=== PATIENT | female | born 1980 | race Caucasian/White ===

== ENCOUNTER 2017-10-22 08:26 | Emergency (ER) | payer MEDICAID ==
[~2017-10-22] VITALS: Ht 165.1 cm; Wt 99.5 kg
[2017-10-22 09:16] VITALS: BP 128/73
[2017-10-22] MEDS ORDERED: ACETAMINOPHEN EXTRA STRENGTH 500 MG TAB PO ONE (11:00)
[2017-10-22 11:27] VITALS: BP 113/74
== END 2017-10-22 11:27 | disposition home or self-care (01) ==
LOC: MED 08:26
DX: O9A.211 Injury, poisoning and certain other consequences of external causes complicating pregnancy, first trimester (principal); S19.9XXA Unspecified injury of neck, initial encounter; I10 Essential (primary) hypertension; Z3A.11 11 weeks gestation of pregnancy; X58.XXXA Exposure to other specified factors, initial encounter; Y93.89 Activity, other specified; Y92.89 Other specified places as the place of occurrence of the external cause; Y99.8 Other external cause status
CPT/HCPCS: 81002; 81025; 99283

== ENCOUNTER 2020-02-10 09:18 | Emergency (ER) | payer MEDICAID, OTHER ==
[~2020-02-10] VITALS: Ht 167.6 cm; Wt 99.8 kg
--- NOTE | 2020-02-10 09:25 | NUR ---
pt ambulated to bed 11
[2020-02-10 09:30] VITALS: BP 157/92
--- NOTE | 2020-02-10 09:37 | NUR ---
39 yo female presented to ED c/o upper abdominal pain x 1 day , pt states n/v/d , denies fever. pt rates pain 10/10 , describes as burning sensation. pt states she feels sweaty and cold. pt lmp 02/09/20. pt denies taking any medication for the pain. pt denies sob. Normoactive BS in all quads. Upper abd round, soft and tender to touch. pt resting in bed at lowest position , HOB elevated, side rails x2 per pt request. Pt provided emesis bag and blanket for comfort. pmh: htn rx: denies NKA
[2020-02-10] MEDS ORDERED: NACL 0.9% 1,000 ML IV ONE ×2 (09:40→11:10)
[2020-02-10] MEDS ORDERED: ONDANSETRON 4 MG/2 ML VIAL IVP ONE (09:40)
[2020-02-10] MEDS ORDERED: MORPHINE SULFATE 4 MG/ML SYR IVP ONE (09:40)
[2020-02-10 10:02] LABS: BASOPHILS # (AUTO) 0.1 K/uL (0.00-0.22); BASOPHILS % (AUTO) 0.6 % (0.0-2.0); HEMATOCRIT 43.3 % (36-48); HEMOGLOBIN 14.7 g/dL (12.0-16.0); LYMPHOCYTES % (AUTO) 9.9 % (20.5-51.1); MEAN CORPUSCULAR HEMOGLOBIN 30 pg (27-31); MEAN CORPUSCULAR HGB CONC 34 g/dL (33-37); MEAN CORPUSCULAR VOLUME 88.8 fL (80-94); MONOCYTES # (AUTO) 0.2 K/uL (0.8-1.0); MONOCYTES % (AUTO) 2.1 % (1.7-9.3); NEUTROPHILS % (AUTO) 87.4 % (42.2-75.2); PLATELET COUNT (AUTO) 409 K/uL (140-450); RED BLOOD CELL COUNT(AUTO) 4.88 MIL/uL (4.20-5.40); RED CELL DISTRIBUTION WIDTH 13.3 % (11.6-13.7); WHITE BLOOD COUNT (AUTO) 10.3 K/uL (4.8-10.8)
--- NOTE | 2020-02-10 10:02 | NUR ---
pt states current pain 0/10. pt resting in bed at lowest position, hob elevated, side rails x2 per pt request, lights dimmed for pt comfort.
[2020-02-10 10:04] LABS: APPEARANCE,URINE CLOUDY (CLEAR); BILIRUBIN,URINE NEGATIVE (NEGATIVE); BLOOD, URINE 3+ (NEGATIVE); COLOR,URINE DARK YELLOW (YELLOW); LEUKOCYTE ESTERASE ,URINE 1+ (NEGATIVE); NITRITE, URINE NEGATIVE (NEGATIVE); PH,URINE 7.5 (5.0-9.0); UGLUCOSE NEGATIVE (NEGATIVE)
--- NOTE | 2020-02-10 10:11 | NUR ---
U/S IS AT BEDSIDE.
--- NOTE | 2020-02-10 10:12 | NUR ---
US at bedside.
[2020-02-10 10:16] LABS: RBC,URINE >100 /HPF (0-5)
--- NOTE | 2020-02-10 10:23 | NUR ---
lab at bedside.
[2020-02-10 10:52] LABS: ALBUMIN 4.1 g/dL (3.4-5.0); ANION GAP 21.3 (8-16); CARBON DIOXIDE 24.7 mmol/L (21-32); CREATININE 0.9 mg/dL (0.6-1.3); TOTAL BILIRUBIN 0.7 mg/dL (0.0-1.0)
--- NOTE | 2020-02-10 12:01 | NUR ---
PT IS RESTING IN THE BED. VSS SHOWS ON THE MONITOR.
[2020-02-10 12:23] VITALS: BP 125/89
--- NOTE | 2020-02-10 12:23 | NUR ---
Patient discharged with v/s stable. Written and verbal after care instructions given and explained. Patient alert, oriented and verbalized understanding of instructions. Ambulatory with steady gait. All questions addressed prior to discharge. ID band removed. Patient advised to follow up with PMD. Rx of Zofran and [place] given. Patient educated on indication of medication including possible reaction and side effects. Opportunity to ask questions provided and answered.
== END 2020-02-10 12:23 | disposition home or self-care (01) ==
LOC: MED 09:18
DX: R10.13 Epigastric pain (principal); E11.9 Type 2 diabetes mellitus without complications; I10 Essential (primary) hypertension; R11.2 Nausea with vomiting, unspecified
CPT/HCPCS: 36415; 76705; 80053; 81001; 81025; 83690; 84702; 85025; 87086; 96361; 96374; 96375; 99284; J2270; J2405; J7030; Q0092

== ENCOUNTER 2020-03-03 17:20 | Emergency (ER) | payer OTHER ==
[~2020-03-03] VITALS: Ht 165.1 cm; Wt 61.2 kg
[2020-03-03 18:33] VITALS: BP 169/101
[2020-03-03] MEDS ORDERED: methylPREDNISolone SS 125 MG in WATER STERILE 2 ML IM ONE (19:00)
[2020-03-03] MEDS ORDERED: methylPREDNISolone SS 125 MG/2 ML VIAL ONE (19:05)
[2020-03-03] MEDS ORDERED: WATER STERILE 10 ML MC ONE (19:05)
[2020-03-03 19:22] VITALS: BP 169/101
== END 2020-03-03 19:22 | disposition home or self-care (01) ==
LOC: MED 17:20
DX: R21 Rash and other nonspecific skin eruption (principal); E11.9 Type 2 diabetes mellitus without complications; I10 Essential (primary) hypertension
CPT/HCPCS: 96372; 99283; J2930

== ENCOUNTER 2020-05-07 17:12 | Emergency (ER) | payer OTHER ==
[~2020-05-07] VITALS: Ht 165.1 cm; Wt 100.2 kg
[2020-05-07 17:16] VITALS: BP 157/117
--- NOTE | 2020-05-07 17:32 | NUR ---
40 Y/O F C/C ALLERGIC REACTION ON BILATERAL HANDS X 5 DAYS. PER PT BELIEVES SHRIMP IS THE CAUSE BILATERAL HAND IRRITATION AND WATERY BLISTERS. BILATERAL HANDS PRESENT IRRITATED, RIGHT HAND WITH WATERY BLISTERS, LEFT HAND WITH SKIN IRRIATION. PT DENIES SOB OR OTHER SKIN PROBLEMS. NKA. NO HX. NO RX. NO NVD. SIDE RAIL X1.
--- NOTE | 2020-05-07 17:35 | NUR ---
ER PA AT BEDSIDE
[2020-05-07] MEDS ORDERED: diphenhydrAMINE 50 MG CAP PO ONE (17:40)
[2020-05-07] MEDS ORDERED: methylPREDNISolone SS 125 MG in WATER STERILE 2 ML IM ONE (17:40)
[2020-05-07] MEDS ORDERED: FAMOTIDINE 20 MG TAB PO ONE (17:40)
[2020-05-07] MEDS ORDERED: methylPREDNISolone SS 125 MG/2 ML VIAL ONE (17:58)
[2020-05-07] MEDS ORDERED: WATER STERILE 10 ML MC ONE (17:58)
[2020-05-07 18:36] VITALS: BP 152/98
--- NOTE | 2020-05-07 18:36 | NUR ---
Patient discharged with v/s stable. Written and verbal after care instructions given and explained. Patient alert, oriented and verbalized understanding of instructions. Ambulatory with steady gait. All questions addressed prior to discharge. ID band removed. Patient advised to follow up with PMD. Rx of prednisone,cortizone given. Patient educated on indication of medication including possible reaction and side effects. Opportunity to ask questions provided and answered.
== END 2020-05-07 18:36 | disposition home or self-care (01) ==
LOC: MED 17:12
DX: L25.9 Unspecified contact dermatitis, unspecified cause (principal); I10 Essential (primary) hypertension
CPT/HCPCS: 96372; 99283; J2930; Q0163

== ENCOUNTER 2023-03-22 11:27 | Emergency (ER) | payer OTHER ==
[~2023-03-22] VITALS: Ht 165.1 cm; Wt 104.3 kg
[2023-03-22 11:36] VITALS: BP 144/100; PULSE 74; RESP 24; TEMP 98.7; O2SAT 99
--- NOTE | 2023-03-22 12:15 | NUR ---
Urine sample obtained, handed to CPT Woody at bedside.
--- NOTE | 2023-03-22 12:17 | NUR ---
Dr. Garay evaluating patient at bedside.
[2023-03-22] MEDS ORDERED: ONDANSETRON 4 MG/2 ML VIAL IVP ONE (12:20)
[2023-03-22] MEDS ORDERED: FAMOTIDINE 20 MG/2 ML VIAL IVP ONE (12:20)
[2023-03-22] MEDS ORDERED: diphenhydrAMINE 50 MG/ML VIAL IVP ONE (12:20)
[2023-03-22] MEDS ORDERED: NACL 0.9% 1,000 ML IV ONE (12:20)
[2023-03-22] MEDS ORDERED: DICYCLOMINE HCL LIQUID 20 MG, ALUMINUM HYD/MAG/SIMETHICONE 30 ML, LIDOCAINE VISCOUS 2% ... PO ONE ×3 (12:20)
[2023-03-22] MEDS ORDERED: ALUMINUM HYD/MAG/SIMETHICONE 30 ML UDC ONE (12:22)
[2023-03-22] MEDS ORDERED: DICYCLOMINE HCL LIQUID 10 MG/5 ML UDC ONE (12:23)
[2023-03-22 12:41] LABS: BASOPHILS % (AUTO) 0.2 % (0.0-2.0); HEMATOCRIT 43.5 % (36-48); LYMPHOCYTES # (AUTO) 0.7 K/uL (2.5-16.5); LYMPHOCYTES % (AUTO) 6.3 % (20.5-51.1); MEAN CORPUSCULAR HEMOGLOBIN 29 pg (27-31); MEAN CORPUSCULAR HGB CONC 35 g/dL (33-37); MEAN CORPUSCULAR VOLUME 85.2 fL (80-94); MONOCYTES # (AUTO) 0.1 K/uL (0.8-1.0); MONOCYTES % (AUTO) 1.2 % (1.7-9.3); NEUTROPHILS # (AUTO) 10.5 K/uL (1.8-7.7); NEUTROPHILS % (AUTO) 92.3 % (42.2-75.2); PLATELET COUNT (AUTO) 377 K/uL (140-450); RED CELL DISTRIBUTION WIDTH 12.8 % (11.6-13.7); WHITE BLOOD COUNT (AUTO) 11.4 K/uL (4.8-10.8)
[2023-03-22 12:50] LABS: BARBITURATE, URINE NEGATIVE ng/ml (NEG <=200); BENZODIAZEPINE, URINE NEGATIVE ng/mL (NEG <=200); CANNABINOID, URINE POSITIVE ng/mL (NEG <=50); COCAINE, URINE NEGATIVE ng/mL (NEG <=300); OPIATE, URINE NEGATIVE ng/mL (NEG <=2000); PHENCYCLIDINE SCREEN,URINE NEGATIVE ng/mL (NEG <=25)
[2023-03-22 12:51] LABS: APPEARANCE,URINE CLEAR (CLEAR); BILIRUBIN,URINE NEGATIVE (NEGATIVE); BLOOD, URINE NEGATIVE (NEGATIVE); COLOR,URINE YELLOW (YELLOW); LEUKOCYTE ESTERASE ,URINE NEGATIVE (NEGATIVE); NITRITE, URINE NEGATIVE (NEGATIVE); PH,URINE 8.5 (5.0-9.0); UGLUCOSE NEGATIVE (NEGATIVE)
--- NOTE | 2023-03-22 12:51 | NUR ---
42 y/o female bib for c/o epigastric pain since today 0100. Patient reports nausea, vomiting and diarrhea. Patient reports taking Tylenol with minimal relief. Patient reports tingling in bilateral arms. Patient reports eating enchiladas then s/s started. Denies fevers or SOB. Call light is within reach. Medical History: HTN NKDA
[2023-03-22 12:57] LABS: ALBUMIN 4.2 g/dL (3.4-5.0); ANION GAP 18.1 (8-16); CARBON DIOXIDE 22.3 mmol/L (21-32); CREATININE 0.9 mg/dL (0.6-1.3); POTASSIUM 3.4 mmol/L (3.5-5.1); TOTAL BILIRUBIN 1.2 mg/dL (0.0-1.0)
[2023-03-22] MEDS ORDERED: FAMO-90 PO (13:32)
[2023-03-22] MEDS ORDERED: ONDA-188 PO (13:32)
[2023-03-22] MEDS ORDERED: MAG355OR2 PO (13:32)
[2023-03-22 13:47] VITALS: BP 124/74; PULSE 74; RESP 17; O2SAT 98
--- NOTE | 2023-03-22 13:49 | NUR ---
Patient discharged with v/s stable. Written and verbal after care instructions given and explained. Patient verbalized understanding. Ambulatory with steady gait. All questions addressed prior to discharge. Advised to follow up with PMD.
== END 2023-03-22 13:54 | disposition home or self-care (01) ==
LOC: MED 11:27
DX: K29.70 Gastritis, unspecified, without bleeding (principal); R11.2 Nausea with vomiting, unspecified; R19.7 Diarrhea, unspecified; I10 Essential (primary) hypertension; F12.90 Cannabis use, unspecified, uncomplicated
CPT/HCPCS: 36415; 80053; 80305; 81003; 83690; 85025; 96361; 96374; 96375; 99284; J1200; J2405; J3490; J7030

== ENCOUNTER 2024-06-24 23:35 | Emergency (ER) | payer BC, OTHER ==
[~2024-06-24] VITALS: Ht 167.6 cm; Wt 113.4 kg
[~2024-06-24 23:35] MED LIST: FAMO-90 PO; MAG355OR2 PO; ONDA-188 PO
[2024-06-24 23:46] VITALS: BP 164/78; PULSE 120; RESP 24; TEMP 98; O2SAT 99
[2024-06-25 00:03] VITALS: O2SAT 99
[2024-06-25 00:18] LABS: BASOPHILS # (AUTO) 0.1 K/uL (0.00-0.22); BASOPHILS % (AUTO) 0.5 % (0.0-2.0); HEMATOCRIT 41.7 % (36-48); HEMOGLOBIN 14.3 g/dL (12.0-16.0); LYMPHOCYTES # (AUTO) 1.8 K/uL (2.5-16.5); LYMPHOCYTES % (AUTO) 13.2 % (20.5-51.1); MEAN CORPUSCULAR HEMOGLOBIN 29 pg (27-31); MEAN CORPUSCULAR HGB CONC 34 g/dL (33-37); MEAN CORPUSCULAR VOLUME 85.7 fL (80-94); MONOCYTES # (AUTO) 0.6 K/uL (0.8-1.0); MONOCYTES % (AUTO) 4.6 % (1.7-9.3); NEUTROPHILS # (AUTO) 11.4 K/uL (1.8-7.7); NEUTROPHILS % (AUTO) 81.7 % (42.2-75.2); PLATELET COUNT (AUTO) 426 K/uL (140-450); RED BLOOD CELL COUNT(AUTO) 4.87 MIL/uL (4.20-5.40); RED CELL DISTRIBUTION WIDTH 12.9 % (11.6-13.7)
[2024-06-25] MEDS: NACL 0.9% 1,000 ML IV ONE (00:25)
[2024-06-25] MEDS: MORPHINE SULFATE 4 MG/ML SYR IVP ONE (00:30)
[2024-06-25] MEDS: ONDANSETRON 4 MG/2 ML VIAL IVP ONE (00:31)
[2024-06-25 00:34] LABS: APPEARANCE,URINE CLEAR (CLEAR); BILIRUBIN,URINE NEGATIVE (NEGATIVE); BLOOD, URINE 1+ (NEGATIVE); COLOR,URINE YELLOW (YELLOW); LEUKOCYTE ESTERASE ,URINE NEGATIVE (NEGATIVE); NITRITE, URINE NEGATIVE (NEGATIVE); PH,URINE 7.5 (5.0-9.0); PROTEIN,URINE 1+ (NEGATIVE); UGLUCOSE NEGATIVE (NEGATIVE); UROBILINOGEN,URINE 0.2 EU/dL (0.2 - 1)
[2024-06-25 00:39] LABS: BACTERIA,URINE FEW /HPF (None Seen); MUCUS,URINE 1+ /LPF (None Seen); SQUAMOUS EPITHELIAL CELL,UR 4-10 (MOD) /LPF (0-3 (FEW)); WBC,URINE 0-5 /HPF (0-5)
[2024-06-25 00:47] LABS: ANION GAP 16.3 (8-16); CALCIUM 9.3 mg/dL (8.5-10.1); CARBON DIOXIDE 25.1 mmol/L (21-32); CREATININE 0.9 mg/dL (0.6-1.3); POTASSIUM 3.4 mmol/L (3.5-5.1)
[2024-06-25 00:55] LABS: BILIRUBIN,DIRECT 0.2 mg/dL (0.0-0.3); TOTAL BILIRUBIN 0.9 mg/dL (0.0-1.0); TOTAL PROTEIN, SERUM 8.4 g/dL (6.4-8.2)
[2024-06-25] MEDS: KETOROLAC 30 MG/ML VIAL IVP ONE (01:10)
[2024-06-25] MEDS ORDERED: SUCR1TAB56 PO (02:54)
[2024-06-25] MEDS ORDERED: FAMO-92 PO (02:54)
== END 2024-06-25 03:06 | disposition home or self-care (01) ==
LOC: MED 23:35
DX: K29.70 Gastritis, unspecified, without bleeding (principal); F12.90 Cannabis use, unspecified, uncomplicated; Z98.890 Other specified postprocedural states; Z79.899 Other long term (current) drug therapy
CPT/HCPCS: 36415; 74176; 80048; 80076; 81001; 81025; 83690; 84703; 85025; 96361; 96374; 96375; 99285; J1885; J2270; J2405; J7030